=== PATIENT | male | born 1945 | race Caucasian/White ===

== ENCOUNTER 2022-08-28 07:21 | Outpatient (RCR) | payer MEDICARE, SELFPAY ==
--- NOTE | 2022-08-29 14:15 | CR1_ITS ---
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
== END 2022-08-29 14:20 | disposition home or self-care (01) ==
LOC: CR 07:21
PROVIDERS: PCP Family Medicine; Visit Provider Family Medicine
DX: Z95.5 Presence of coronary angioplasty implant and graft (principal); I25.2 Old myocardial infarction; I10 Essential (primary) hypertension
CPT/HCPCS: 93798

== ENCOUNTER 2023-07-25 22:48 | Emergency (ER) | payer MEDICARE, SELFPAY ==
[2023-07-25 22:54] VITALS: BP 178/87; PULSE 57; TEMP 36.4; O2SAT 98; BMI 25.1
--- NOTE | 2023-07-25 23:12 | US_ITS ---
[address] [address] Patient Name: JESSICA BLACKMAN MRN: [id number] date: 1945 Sex: M Assigned Patient Location: ER Current Patient Location: Accession/Order Number: [id number] Exam Date: 07/25/2023 23:20 Report Date: 07/26/2023 07:03 At the request of: RASHEEDA MARKER Procedure: US arterial duplex UE BI EXAMINATION: US arterial duplex UE BI HISTORY: Forearm pain, swelling COMPARISON: No relevant comparison available. TECHNIQUE: Color duplex Doppler ultrasound evaluation analysis was performed in the usual manner. FINDINGS: LEFT UPPER EXTREMITY ARTERIAL Normal flow velocities and triphasic waveform throughout the right arm arterial tree Heterogeneous atherosclerotic plaque in the distal radial artery Identified in the region of the patient's palpable abnormality is a focal 5.4 x 2.5 x 4.9 mm area of anechoic echogenicity, irregular borders with no internal blood flow. RIGHT UPPER EXTREMITY ARTERIAL Normal flow velocities and triphasic waveform throughout the left arm arterial tree. Heterogeneous atherosclerotic plaque in the distal radial artery US/US arterial duplex UE BI IMPRESSION: 5.4 mm area of anechoic echogenicity in the region of the patient's pain and swelling. The differential diagnosis would include abscess versus hematoma versus seroma. No flow significant arterial stenosis in the arms Electronically authenticated by: EUNICE SMITH Date: 07/26/2023 07:03
[2023-07-25 23:55] VITALS: BMI 25.1
--- NOTE | 2023-07-25 23:58 | ED.GENADUL1 ---
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 He also has a small lump that feels like a cyst on the right anterior wrist area. He denies any injury in this area. Pain is made worse by flexion and extension of his wrist. There is no numbness or tingling. He denies any chest pain or shortness of breath. No additional injuries or complaints. Related Data Home Medications ?Medication ?Instructions ?Recorded ?Confirmed aspirin 81 mg capsule 81 mg PO DAILY 07/25/23 07/25/23 carvedilol 3.125 mg tablet mg 07/25/23 fluticasone propionate 50 intranasal 07/25/23 mcg/actuation nasal spray,suspension lisinopril 20 mg tablet mg 07/25/23 rosuvastatin 40 mg tablet mg 07/25/23 tamsulosin 0.4 mg capsule mg PO 07/25/23 Allergies Allergy/AdvReac Type Severity Reaction Status Date / Time No Known Drug Allergies Allergy Verified 07/25/23 23:03 Opioid HPI Opioid Management Most Recent Opioid Data: No Data to Display Review of Systems ROS Status of ROS 10 or more systems reviewed and unremarkable except as noted in history and below Exam Narrative Exam Narrative: Vital signs and Nursing Notes reviewed: Patient is afebrile with a normal pulse, blood pressure is elevated at 178/87, he is not hypoxic with pulse ox of 98% on room air General: Awake, alert, oriented, no acute distress, lying comfortably on the stretcher HEENT: Normocephalic atraumatic, mucous membranes are moist and pink, eyes are clear, normal conjunctiva, vision is grossly intact Neck: Supple, no meningeal signs, no anterior or posterior cervical lymphadenopathy Chest: Lungs are clear to auscultation with good air entry, there is no wheezing rhonchi or rales appreciated no accessory muscle use, patient is speaking in complete sentences-no chest wall tenderness to palpation CVS: Regular rate and rhythm S1-S2, no murmurs rubs or gallops, pulses are brisk and equal bilaterallyd Extremities: There is mild swelling and tenderness to the left distal forearm. Radial pulses brisk. Very minimal erythema is noted. Patient is able to perform Phalen's test with pain along the medial distal forearm. Tinel's test is negative. Fingers are warm and sensate. Patient is able to make a fist. On the right distal forearm there is a small mobile cyst at the distal ulna. There is no notable swelling or other abnormality associated with the cyst. Skin: Normal in appearance without rash,pallor, petechiae or purpura Neuro: No focal deficits Constitutional Vital Signs, click to edit/add: Last Vital Signs Temp 97.6 F 07/25/23 22:54 Pulse 57 L 07/25/23 22:54 Resp 18 07/25/23 22:54 BP 178/87 H 07/25/23 22:54 Pulse Ox 98 07/25/23 22:54 O2 Del Method Room Air 07/25/23 22:54 Course Vital Signs Vital signs: Vital Signs Temperature 97.6 F 07/25/23 22:54 Pulse Rate 57 L 07/25/23 22:54 Respiratory Rate 18 07/25/23 22:54 Blood Pressure 178/87 H 07/25/23 22:54 Pulse Oximetry 98 07/25/23 22:54 Oxygen Delivery Method Room Air 07/25/23 22:54 Temperature 97.6 F 07/25/23 22:54 Pulse Rate 57 L 07/25/23 22:54 Respiratory Rate 18 07/25/23 22:54 Blood Pressure 178/87 H 07/25/23 22:54 Pulse Oximetry 98 07/25/23 22:54 Oxygen Delivery Method Room Air 07/25/23 22:54 Medical Decision Making [facility] Narrative Medical decision making narrative: This 78-year-old male with a history of arthritis who is right-hand dominant presents for evaluation of left distal forearm wrist and thumb pain with some mild erythema and swelling to the area. He was recently taken off of his Plavix after having a coronary stent over a year ago. He was concerned that he had developed a DVT in his distal forearm. His pulses are brisk and normal. Fingers are warm and sensate. He does have some swelling at the distal radius and wrist area. His is concerned that he is developing an infection due to the redness. He does not have any fever or lymphangitic streaking. He has pain with range of motion. Ultrasound of the extremity was ordered and according to the apartment maintenance technician there is a small fluid collection in the distal forearm but no DVT. X-ray of the extremity shows degenerative changes consistent with osteoarthritis. Due to the concern for infection he was medicated with Keflex and given Tylenol for his pain. He was placed in an Dexter wrap and given a wrist splint for comfort and compression. He will be discharged home with prescription for Naprosyn and Keflex. He was encouraged to avoid golfing, heavy lifting or excessive mowing of his yard which may have aggravated this osteoarthritis in the recent past. Medical Records Medical records narrative: [place] [address] XRay Report Signed Patient: JESSICA BLACKMAN MR#: [id number] : 1945 Acct:[id number] Age/Sex: 78 / M ADM Date: 07/25/23 Loc: ER Attending Dr: Ordering Physician: Aisha Stover Date of Service: 07/26/23 Procedure(s): XR wrist LT min 3V Accession Number(s): [id number] cc: Bradley Diego D.O.; Aisha Stover~ [facility] [place] [id number] Patient Name: JESSICA BLACKMAN MRN: [id number] date: 1945 Sex: M Assigned Patient Location: ER Current Patient Location: ER Accession/Order Number: [id number] Exam Date: 07/26/2023 00:42 Report Date: 07/26/2023 01:40 At the request of: AISHA STOVER Procedure: XR wrist LT min 3V XR wrist LT min 3V 07/26/2023 12:42 AM EDT CLINICAL INDICATION: Left wrist pain and swelling COMPARISON: None. TECHNIQUE: 3 views of the left wrist. FINDINGS: The bones are intact. The alignment is anatomic. There are degenerative changes of the joints. Vascular calcifications are noted XR/XR wrist LT min 3V IMPRESSION: No acute osseous abnormality of the left wrist. Discharge Plan Discharge Stand Alone Forms: Portal Instructions Chief Complaint: Extremity Injury, Upper Clinical Impression: Osteoarthritis of left thumb Patient Disposition: Home, Self-Care Time of Disposition Decision: 02:01 Condition: Good Prescriptions / Home Meds: No Action lisinopril 20 mg tablet carvedilol 3.125 mg tablet tamsulosin 0.4 mg capsule PO fluticasone propionate 50 mcg/actuation spray,suspension INTRANASAL rosuvastatin 40 mg tablet aspirin 81 mg capsule 81 mg PO DAILY Print Language: Kyrgyz Instructions: Osteoarthritis (ED), Arthritis (ED) Referrals: Bradley Diego DO [Primary Care Provider] - 1 week
--- NOTE | 2023-07-26 00:39 | XR_ITS ---
[place] [id number] Patient Name: JESSICA BLACKMAN MRN: [id number] date: 1945 Sex: M Assigned Patient Location: ER Current Patient Location: ER Accession/Order Number: [id number] Exam Date: 07/26/2023 00:42 Report Date: 07/26/2023 01:40 At the request of: RASHEEDA MARKER Procedure: XR wrist LT min 3V XR wrist LT min 3V 07/26/2023 12:42 AM EDT CLINICAL INDICATION: Left wrist pain and swelling COMPARISON: None. TECHNIQUE: 3 views of the left wrist. FINDINGS: The bones are intact. The alignment is anatomic. There are degenerative changes of the joints. Vascular calcifications are noted XR/XR wrist LT min 3V IMPRESSION: No acute osseous abnormality of the left wrist. Electronically authenticated by: YOBANY FELIZ Date: 07/26/2023 01:40
[2023-07-26] MEDS: CEPHALEXIN 500 MG CAPSULE PO (01:07)
[2023-07-26] MEDS: ACETAMINOPHEN 325 MG TABLET 650 MG PO (01:07)
--- NOTE | 2023-07-26 01:10 | PC.NURSE ---
Reddened area to right wrist, no known injury, skin intact.
== END 2023-07-26 02:08 | disposition home or self-care (01) ==
PROVIDERS: Emergency Provider Emergency Medicine; PCP Family Medicine
DX: M19.042 Primary osteoarthritis, left hand (principal); Z95.5 Presence of coronary angioplasty implant and graft
CPT/HCPCS: 73110; 93930; 99284